=== PATIENT | male | born 1985 | race Caucasian/White ===

== ENCOUNTER 2025-03-01 10:18 | Emergency (ER) | payer OTHER ==
[~2025-03-01] VITALS: Ht 172.7 cm; Wt 74.8 kg
[2025-03-01 10:34] VITALS: BP 122/77; TEMP 98.5
[2025-03-01] MEDS ORDERED: IBUP-1490 PO (11:48)
[2025-03-01 12:06] VITALS: O2SAT 99
== END 2025-03-01 12:02 | disposition home or self-care (01) ==
LOC: ER 10:38
DX: S62.390A Other fracture of second metacarpal bone, right hand, initial encounter for closed fracture (principal); F17.200 Nicotine dependence, unspecified, uncomplicated; W22.8XXA Striking against or struck by other objects, initial encounter; Y93.89 Activity, other specified; Y92.098 Other place in other non-institutional residence as the place of occurrence of the external cause; Y99.8 Other external cause status
CPT/HCPCS: 73130-TC